=== PATIENT | female | born 1990 | race Caucasian/White ===

== ENCOUNTER 2018-01-02 01:28 | Day surgery (SDC) | payer SELFPAY ==
[2018-01-02 01:59] VITALS: BP 130/80; TEMP 98.6; BMI 28.7
--- NOTE | 2018-01-02 07:53 | PRG ---
DATE OF SERVICE: 01/02/2018 PRESENTING COMPLAINT: Contractions at 37 weeks gestation. HISTORY OF PRESENT ILLNESS: Ms. Sher is a 27-year-old 1 at 37 weeks. OB record is not ranjit ilable. She reports contractions for the past several hours, no bleeding, no leakage of fluid and an active fetus. OB AND [employer] HISTORY: Primigravida. Unknown labs. PAST MEDICAL HISTORY: Denies. PAST SURGICAL HISTORY: Denies. ALLERGIES: Denies. MEDICATIONS: vitamins. SOCIAL HISTORY: Denies tobacco, alcohol, or IV drug abuse. FAMILY HISTORY/REVIEW OF SYSTEMS: Noncontributory. PHYSICAL EXAMINATION: GENERAL: A female in no acute distress. VITAL SIGNS: Temperature 98.6, respirations 18, blood pressure 118/72, pulse 85. HEENT: Within normal limits. LUNGS: Clear to auscultation bilaterally. HEART: Regular rhythm. ABDOMEN: Soft with indentable contractions every 3-5 minutes. FHTs 140s. Fundal height of 36. PELVIC: Vulva without lesions. Vagina without discharge. Cervix closed, long, and high. EXTREMITIES: Without clubbing, cyanosis or edema. heart rate tracing greater than 30 minutes of monitoring was carried out with a category 1 feta l heart rate tracing. The patient had uterine irritability approximately every 3-5 minutes; however, this did not seem to be active labor as the patient was very comfortable through it. Cervix was unc hanged and was noted to be firm, closed, long, and high. IMPRESSION: Prodromal labor at 37 weeks gestation. PLAN: Reassurance, ER precautions. The patient to keep scheduled followup with Ryanne Galaviz.
== END 2018-01-02 02:47 | disposition home or self-care (01) ==
LOC: L&D/OP 01:28
PROVIDERS: ATTEND Advanced Practice Midwife
DX: O47.1 False labor at or after 37 completed weeks of gestation (principal); Z3A.37 37 weeks gestation of pregnancy; Z79.899 Other long term (current) drug therapy
CPT/HCPCS: 99282

== ENCOUNTER 2018-01-09 23:54 | Inpatient (IN) | payer BC, SELFPAY ==
[2018-01-10 00:26] VITALS: BMI 29.3
[2018-01-10] MEDS ORDERED: Penicillin G Potassium 5 MILL.UNITS VIAL ONE (00:53)
[2018-01-10] MEDS ORDERED: CEFAZOLIN/Water 2 GM/20 ML SYRINGE ONE (01:18)
[2018-01-10 01:19] LABS: Hemoglobin 11.9 g/dL (12.0-16.0); Mean Corpuscular HGB CONC 33.4 g/dL (32.0-36.0); Mean Corpuscular Hemoglobin 26.8 pg (27.0-31.0); Mean Corpuscular Volume 80.1 fl (81.0-99.0); Mean Platelet Volume 8.5 fL (7.4-10.4); Platelet Count 223 thou/uL (130-400); RBC Distribution Width 13.8 % (11.5-14.5); Red Blood Cell (RBC) Count 4.45 mill/uL (4.20-5.40); White Blood Cell (WBC) Count 19.4 thou/uL (4.8-10.8)
[2018-01-10] MEDS ORDERED: Ondansetron HCl/PF 4 MG/2 ML Vial IVP PRN ×2 (01:25→09:21)
[2018-01-10] MEDS ORDERED: Promethazine HCl 25 MG/ML VIAL IM PRN (01:25)
[2018-01-10] MEDS ORDERED: Lactated Ringer's 1,000 ML IV SCH (01:25)
[2018-01-10] MEDS ORDERED: Acetaminophen 500 MG TAB PO PRN (01:25)
[2018-01-10] MEDS ORDERED: Lidocaine 1% (PF) 30 ML VIAL SC PRN (01:30)
[2018-01-10] MEDS ORDERED: LR / Pitocin 40 units/1000 ml 40 UNITS/1,000 ML BAG IV SCH (01:30)
[2018-01-10] MEDS ORDERED: Ibuprofen 800 MG TAB PO PRN (01:30)
[2018-01-10] MEDS ORDERED: LR 500 ML/Oxytocin 10 units 500 ML IV SCH ×2 (01:30)
[2018-01-10 01:49] LABS: Syphilis Antibody Nonreactive (Nonreactive); Syphilis Antibody Index 0.06 S/CO (<1.00 Non-Reactive)
[2018-01-10 01:50] LABS: Hep B Surf Ag Non-Reactive S/CO (NonReactive)
--- NOTE | 2018-01-10 06:46 | PDOC.LDHP ---
Labor and Delivery H&P Chief complaint: contractions, loss of fluid (SROM at 2200 at home.) HPI: She had a big gush of fluid on 01/09/18, so much that she had to use a towel to clean it up. She started having mild contractions and called the her CNM who advised her to go to L&D. Current gestational age (weeks): 38 Due date: 01/23/18 Dating criteria: last menstrual period Grav: 1 Para: 0 OB History Details: none, primigravida Abnormal US findings: No Past Medical History: none Current medications: pre-jaxson vitamins Previous surgical history: none Allergies/Adverse Reactions: Allergies Allergy/AdvReac Type Severity Reaction Status Date / Time amoxicillin Allergy Nausea Verified 01/10/18 00:22 Social history: none (during ) - Physical Exam Vital signs reviewed and normal: yes General: breathing through contractions Heart: RRR Lungs: nonlabored breathing Abdomen: gravid Extremeties: no edema FHT: category 1 [place] contractions every: q2-3 mins - Vaginal Exam cm dilated: 5 Effacement: 90% Station: -1 - OB Labs Blood type: O RH: positive Antibody Screen: negative HIV: negative RPR: negative HEPSAg: negative 1 hour GCT: negative GBS: positive Urine drug screen: not done Rubella: immune - Assessment L&D Assessment: term patient in labor GBS positive - Plan Plan: admit to L&D, GBS antibiotic prophylaxis (with ancef 2gm load and 1g q8)
--- NOTE | 2018-01-10 06:47 | PDOC.OPDEL ---
OB Operative/Delivery Note Delivery Dr/Surgeon: Guillaume Pre-Delivery Diagnosis: active labor, ruptured membrane Procedure/Post Delivery Dx: spontaneous vaginal delivery Weeks gestation: 38 Anesthesia: none - Findings A Sex: male Weight: 8 lb 13 oz - 1 min: 8 - 5 min: 9 - Additional Findings/Plan Placenta delivered: spontaneous Repaired Obstetrical Laceration: 1st degree (repaired) Estimated blood loss: 200 Compilations/Other Findings: compound delivery of hand 1cm labial hematoma lateral to the clitoral menendez right side, non expanding Post delivery plan: routine recovery
[2018-01-10] MEDS ORDERED: Varicella virus, LIVE 0.5 ML VIAL SC ONE (09:21)
[2018-01-10] MEDS ORDERED: LR / Pitocin 40 units/1000 ml 1,000 ML IV SCH (09:21)
[2018-01-10] MEDS ORDERED: Prenatal Vitamin 1 TAB PO SCH ×2 (09:21→10:15)
[2018-01-10] MEDS ORDERED: Docusate Calcium (SURFAK) 240 MG CAP PO SCH ×2 (09:21→10:15)
[2018-01-10] MEDS ORDERED: Ferrous Sulfate 325 MG TAB PO SCH ×2 (09:21→10:15)
[2018-01-10] MEDS ORDERED: Adacel (T-DAP) 0.5 ML VIAL IM ONE (09:21)
[2018-01-10] MEDS ORDERED: Lanolin Ointment 7 GM TUBE TOP PRN (09:21)
[2018-01-10] MEDS ORDERED: HYDROcodone/Acetaminophen 5/325 mg Tablet PO PRN ×2 (09:21)
[2018-01-10] MEDS ORDERED: Bisacodyl 10 MG SUPP PR PRN (09:21)
[2018-01-10] MEDS ORDERED: Methylergonovine 0.2 MG/ML VIAL IM PRN (09:21)
[2018-01-10] MEDS ORDERED: Benzocaine/Menthol 20-0.5% 60 ML CAN TOP PRN (09:21)
[2018-01-10] MEDS ORDERED: Measles/Mumps/Rubella 10 MCG/0.5 ML VIAL SC ONE (09:21)
[2018-01-10] MEDS ORDERED: Milk Of Magnesia 30 ML UDCUP PO PRN (09:21)
[2018-01-10] MEDS: Ibuprofen 800 MG TAB PO SCH ×2 (13:33→21:24)
[2018-01-10] MEDS: Ferrous Sulfate 325 MG TAB PO SCH (15:37)
[2018-01-10] MEDS: Docusate Calcium (SURFAK) 240 MG CAP PO SCH (21:24)
[2018-01-11 05:24] LABS: Hemoglobin 10.3 g/dL (12.0-16.0); Mean Corpuscular HGB CONC 33.5 g/dL (32.0-36.0); Mean Corpuscular Hemoglobin 27.3 pg (27.0-31.0); Mean Corpuscular Volume 81.6 fl (81.0-99.0); Platelet Count 206 thou/uL (130-400); Red Blood Cell (RBC) Count 3.76 mill/uL (4.20-5.40); White Blood Cell (WBC) Count 15.9 thou/uL (4.8-10.8)
[2018-01-11] MEDS: Ibuprofen 800 MG TAB PO SCH ×3 (05:50→21:22)
[2018-01-11] MEDS: Prenatal Vitamin 1 TAB PO SCH (10:21)
[2018-01-11] MEDS: Docusate Calcium (SURFAK) 240 MG CAP PO SCH ×2 (10:21→21:22)
[2018-01-11] MEDS: Ferrous Sulfate 325 MG TAB PO SCH ×2 (10:22→17:31)
--- NOTE | 2018-01-11 10:55 | PDOC.PP ---
Post Progress Note Post Day #: 1 Subjective: doing well. baby is like a champ. She is a little sores, but way better than what she expected. Up to ambulate, using the restroom, passing gas. Having minimal bleeding PO intake tolerated: yes Flatus: yes Ambulation: yes Vital Signs (12 hours) Temp Pulse Resp BP Pulse Ox 01/11/18 07:29 97.9 F 69 17 128/64 99 01/11/18 05:52 98.1 F 01/11/18 03:38 98.0 F 64 18 124/74 98 01/10/18 23:53 98.4 F 84 18 120/61 98 Weight Weight 193 lb - Physical Examination General: NAD Cardiovascular: no m/r/g Respiratory: non-labored breathing Abdominal: + bowel sounds, lochia (scant) Fundus firm & at: -2 Extremities: negative homans (B) Psychiatric: A&Ox3, normal affect Result Diagrams: 01/11/18 05:09 Additional Labs: Post Labs Blood Type O POSITIVE 01/10/18 01:00 Hep Bs Antigen Non-Reactive S/CO (NonReactive) 01/10/18 01:00 - Assessment/Plan A; G1 now P1 SP at 38 weeks. NML ppd #1 exam. P: discharge home tonight is is discharging, if not discharge home tomorrow.
[2018-01-12] MEDS: Ibuprofen 800 MG TAB PO SCH ×2 (05:47→14:00)
[2018-01-12] MEDS: Ferrous Sulfate 325 MG TAB PO SCH (08:18)
[2018-01-12] MEDS: Prenatal Vitamin 1 TAB PO SCH (08:19)
[2018-01-12] MEDS: Docusate Calcium (SURFAK) 240 MG CAP PO SCH (08:19)
[2018-01-12 08:35] VITALS: BP 122/74; TEMP 98.6
== END 2018-01-12 14:29 | disposition home or self-care (01) | DRG 775 ==
LOC: L&D/OP 23:54 → L&D-LIB 01-10 01:33 → 3SE 01-10 08:34
PROVIDERS: ADMIT Obstetrics & Gynecology; ATTEND Obstetrics & Gynecology
PROC: 10E0XZZ Delivery of Products of Conception, External Approach (ICD-10-PCS; principal; 2018-01-10)
PROC: 0HQ9XZZ Repair Perineum Skin, External Approach (ICD-10-PCS; 2018-01-10)
DX: O70.0 First degree perineal laceration during delivery (principal); Z37.0 Single live birth; Z3A.38 38 weeks gestation of pregnancy
CPT/HCPCS: 36415; 85027; 86780; 87340; 90707; 90716; 99285; A4216; J0690; J2001; J2540

== ENCOUNTER 2019-04-22 07:00 | Inpatient (IN) | payer BC ==
[2019-04-22] MEDS ORDERED: Bisacodyl 10 MG SUPP PR PRN (07:44)
[2019-04-22] MEDS ORDERED: Benzocaine-Menthol 82.5 ML CAN TOP PRN (07:44)
[2019-04-22] MEDS ORDERED: Milk Of Magnesia 30 ML UDCUP PO PRN (07:44)
[2019-04-22] MEDS ORDERED: hydrALAZINE 20 MG/ML VIAL SLOW IVP PRN ×2 (07:44)
[2019-04-22] MEDS ORDERED: Oxytocin 10 UNITS/ML VIAL IM PRN (07:48)
--- NOTE | 2019-04-22 08:11 | PDOC.LDHP ---
Labor and Delivery H&P Chief complaint: other ( at home) HPI: patient arrived to the ER after delivering her infant at home this morning at 0630. She arrived by personal vehicle. she had not delivered the placenta. The infant was crying and trying to nurse in the car. Current gestational age (weeks): 39 Due date: 04/24/19 Dating criteria: last menstrual period Grav: 2 Para: 1 Current complications: none Abnormal US findings: Yes (Bilateral renal pylectasis ) Current medications: pre- vitamins Previous surgical history: none Allergies/Adverse Reactions: Allergies Allergy/AdvReac Type Severity Reaction Status Date / Time amoxicillin Allergy Nausea Verified 01/10/18 00:22 Social history: none - Physical Exam Vital signs reviewed and normal: yes Heart: RRR Lungs: nonlabored breathing - OB Labs Blood type: O RH: positive Antibody Screen: negative HIV: negative RPR: negative HEPSAg: negative 1 hour GCT: negative GBS: negative Urine drug screen: negative Rubella: immune - Assessment Term patient - Plan Plan: admit to L&D -: Routine care. kane consult for pylectasis.
[2019-04-22] MEDS: Ibuprofen 800 MG TAB PO SCH ×3 (08:15→21:48)
--- NOTE | 2019-04-22 08:16 | PDOC.OPDEL ---
OB Operative/Delivery Note Delivery Dr/Surgeon: Guillaume Pre-Delivery Diagnosis: other ( at home) Weeks gestation: 39 Anesthesia: none - Findings A Sex: male Weight: 8 lb 3 oz - Additional Findings/Plan Placenta delivered: spontaneous Repaired Obstetrical Laceration: none Estimated blood loss: 250mL Post delivery plan: routine recovery
[2019-04-22 10:43] LABS: Hemoglobin 13.7 g/dL (12.0-16.0); Mean Corpuscular HGB CONC 33.3 g/dL (32.0-36.0); Mean Corpuscular Hemoglobin 29.3 pg (27.0-31.0); Mean Corpuscular Volume 88.1 fL (78.0-98.0); Mean Platelet Volume 8.5 fL (7.4-10.4); Platelet Count 206 thou/uL (130-400); RBC Distribution Width 12.3 % (11.5-14.5); Red Blood Cell (RBC) Count 4.68 mill/uL (4.20-5.40); White Blood Cell (WBC) Count 18.4 thou/uL (4.8-10.8)
[2019-04-22 11:12] LABS: Syphilis Antibody Nonreactive (Nonreactive); Syphilis Antibody Index 0.06 S/CO (<1.00 Non-Reactive)
[2019-04-22 11:20] LABS: HBSAg Index 0.27 S/CO (0-0.99); Hep B Surf Ag Non-Reactive S/CO (NonReactive)
[2019-04-22] MEDS: Ferrous Sulfate 325 MG TAB PO SCH ×2 (11:53→14:35)
[2019-04-22] MEDS: Docusate Calcium (SURFAK) 240 MG CAP PO SCH ×2 (11:54→21:48)
[2019-04-22 19:03] VITALS: BMI 28.7
[2019-04-23] MEDS: Ibuprofen 800 MG TAB PO SCH ×2 (06:12→13:39)
[2019-04-23] MEDS ORDERED: Adacel (T-DAP) 0.5 ML SYRINGE IM ONE (07:44)
[2019-04-23 07:48] VITALS: BP 126/82; TEMP 98
[2019-04-23] MEDS: Ferrous Sulfate 325 MG TAB PO SCH ×2 (07:53→14:07)
[2019-04-23] MEDS: Docusate Calcium (SURFAK) 240 MG CAP PO SCH (09:28)
--- NOTE | 2019-04-23 15:12 | PDOC.PP ---
Post Progress Note Post Day #: 1 Subjective: Patient is doing well. Would like to go home today if possible PO intake tolerated: yes Flatus: yes Ambulation: yes Vital Signs (12 hours) Temp Pulse Resp BP Pulse Ox 04/23/19 07:47 98.0 F 78 20 126/82 98 04/23/19 03:55 98.5 F 74 16 115/74 98 Weight Weight 189 lb - Physical Examination General: NAD Cardiovascular: no m/r/g Respiratory: non-labored breathing Abdominal: lochia (minimal) Extremities: negative homans (B) Skin: no rash Neurological: no gross focal deficits Psychiatric: A&Ox3, normal affect Result Diagrams: 04/22/19 10:13 Additional Labs: Post Labs Blood Type O POSITIVE 04/22/19 10:13 Hep Bs Antigen Non-Reactive S/CO (NonReactive) 04/22/19 10:13 (1) (spontaneous vaginal delivery) Code(s): O80 - ENCOUNTER FOR FULL-TERM UNCOMPLICATED DELIVERY Status: Acute (2) 39 weeks gestation of Code(s): Z3A.39 - 39 WEEKS GESTATION OF Status: Acute - Assessment/Plan A: sp .with NML ppd 1 exam P;Routine care. Discharge home if infant is discharged today.
== END 2019-04-23 16:00 | disposition home or self-care (01) | DRG 776 ==
LOC: ERS 07:00 → L&D 07:01 → 3SW 10:50
PROVIDERS: ADMIT Obstetrics & Gynecology; ATTEND Obstetrics & Gynecology
PROC: 10E0XZZ Delivery of Products of Conception, External Approach (ICD-10-PCS; principal; 2019-04-22)
DX: Z39.0 Encounter for care and examination of mother immediately after delivery (principal)
CPT/HCPCS: 85027; 86780; 86850; 86900; 86901; 87340; 99284; 99285

== ENCOUNTER 2020-08-26 00:59 | Inpatient (IN) | payer BC ==
[2020-08-26] MEDS ORDERED: HYDROcodone/Acetaminophen 5/325 mg Tablet PO PRN ×2 (01:53)
[2020-08-26] MEDS ORDERED: hydrALAZINE 20 MG/ML VIAL SLOW IVP PRN (01:53)
[2020-08-26] MEDS ORDERED: Promethazine HCl 25 MG/ML VIAL IM PRN (01:53)
[2020-08-26] MEDS ORDERED: Methylergonovine 0.2 MG/ML VIAL IM PRN (01:53)
[2020-08-26] MEDS ORDERED: Diphenoxylate HCl/Atropine Tablet PO PRN ×2 (01:53)
[2020-08-26] MEDS ORDERED: Butorphanol Tartrate 1 MG/ML VIAL SLOW IVP PRN (01:53)
[2020-08-26] MEDS ORDERED: Ondansetron PF 4 MG/2 ML Vial IVP PRN (01:53)
[2020-08-26] MEDS ORDERED: Acetaminophen 500 MG TAB PO PRN (01:53)
[2020-08-26] MEDS ORDERED: Misoprostol 200 MCG TAB PR PRN (01:53)
[2020-08-26] MEDS ORDERED: NS / Oxytocin 40 units/1000ml 1,000 ML IV PRN (01:53)
[2020-08-26] MEDS ORDERED: Lidocaine 1% (PF) 30 ML VIAL SC PRN (01:53)
[2020-08-26] MEDS ORDERED: Carboprost 250 MCG/ML AMP IM PRN (01:53)
[2020-08-26 02:41] VITALS: BMI 30.7
[2020-08-26 02:43] LABS: Hemoglobin 12.8 g/dL (12.0-16.0); Mean Corpuscular HGB CONC 32.5 g/dL (32.0-36.0); Mean Corpuscular Hemoglobin 28.3 pg (27.0-31.0); Mean Platelet Volume 9.1 fL (7.4-10.4); Platelet Count 191 thou/uL (130-400); RBC Distribution Width 12.5 % (11.5-14.5); Red Blood Cell (RBC) Count 4.51 mill/uL (4.20-5.40)
--- NOTE | 2020-08-26 02:52 | PDOC.LDHP ---
Labor and Delivery H&P Chief complaint: contractions HPI: Patient started having contractions around 200 with bloody show. +FM. Current gestational age (weeks): 38 (6 days) Due date: 09/03/20 Dating criteria: first trimester ultrasound Grav: 3 Para: 2 OB History Details: 2018 8.12 2019 39.5 2020 current Current complications: none Current medications: pre- vitamins Previous surgical history: none Allergies/Adverse Reactions: Allergies Allergy/AdvReac Type Severity Reaction Status Date / Time No Known Allergies Allergy Verified 08/26/20 02:34 Social history: none - Physical Exam Vital signs reviewed and normal: yes General: NAD Lungs: nonlabored breathing Abdomen: gravid FHT: category 1 - Vaginal Exam cm dilated: 7 Effacement: 75% Station: -3 - Assessment L&D Assessment: term patient in labor cephalic presentation EFW 8 lb 8oz - Plan Plan: admit to L&D, informed consent obtained -: Low intervention protocol Anticipate
[2020-08-26] MEDS: Lactated Ringer's 1,000 ML IV SCH ×3 (02:54→18:40)
[2020-08-26 03:21] LABS: HBSAg Index 0.19 S/CO (0-0.99); Hep B Surf Ag Non-Reactive S/CO (NonReactive)
[2020-08-26 06:09] LABS: Syphilis Antibody Nonreactive (Nonreactive); Syphilis Antibody Index 0.04 S/CO (<1.00 Non-Reactive)
[2020-08-26 08:58] LABS: Actual Bicarbonate (HCO3a) 23.2 mEq/L (22-28); Actual Bicarbonate (HCO3v) 23 mEq/L (22-28); Analyzer IN Cardio OR; Base Excess -1.2 mEq/L (-2.0 to +3.0); pH (Cord, venous) 7.42 (7.32-7.43)
[2020-08-26] MEDS: Ibuprofen 800 MG TAB PO PRN ×2 (09:16→20:14)
[2020-08-26 09:19] LABS: SARS-CoV-2 MS2 Positive; SARS-CoV-2 N Gene Negative; SARS-CoV-2 S Gene Negative; SARS-CoV-2 by NAA Not Detected (NotDetected); SARS-CoV-2 orf1ab Negative
[2020-08-26] MEDS ORDERED: NS / Oxytocin 40 units/1000ml 1,000 ML IV SCH ×2 (16:52)
[2020-08-27] MEDS ORDERED: Bisacodyl 10 MG SUPP PR PRN (05:54)
[2020-08-27] MEDS ORDERED: NS / Oxytocin 40 units/1000ml 1,000 ML IV SCH (05:54)
[2020-08-27] MEDS ORDERED: Misoprostol 200 MCG TAB VAG PRN (05:54)
[2020-08-27] MEDS ORDERED: Milk Of Magnesia 30 ML UDCUP PO PRN (05:54)
[2020-08-27] MEDS ORDERED: Lanolin Ointment 7 GM TUBE TOP PRN (05:54)
[2020-08-27] MEDS ORDERED: hydrALAZINE 20 MG/ML VIAL SLOW IVP PRN (05:54)
[2020-08-27] MEDS ORDERED: Benzocaine-Menthol 82.5 ML CAN TOP PRN (05:54)
[2020-08-27] MEDS ORDERED: Methylergonovine 0.2 MG/ML VIAL IM PRN (05:54)
[2020-08-27] MEDS: Ibuprofen 800 MG TAB PO SCH ×2 (06:55→14:06)
--- NOTE | 2020-08-27 07:16 | PDOC.OPDEL ---
OB Operative/Delivery Note Delivery Dr/Surgeon: Guillaume. (Late entry) Pre-Delivery Diagnosis: active labor Procedure/Post Delivery Dx: spontaneous vaginal delivery Weeks gestation: 38 Anesthesia: none - Findings A Sex: female Weight: 9 lb 10 oz - 1 min: 5 - 5 min: 7 - Additional Findings/Plan Placenta delivered: spontaneous Repaired Obstetrical Laceration: none Estimated blood loss: 200mL Compilations/Other Findings: bradycardia prior to delivery. tight nuchal. Patrick team called Post delivery plan: routine recovery
[2020-08-27] MEDS ORDERED: Ferrous Sulfate 325 MG TAB PO SCH (08:00)
[2020-08-27] MEDS ORDERED: Prenatal Vitamin 1 TAB PO SCH (09:00)
[2020-08-27] MEDS ORDERED: Adacel (T-DAP) 0.5 ML SYRINGE IM ONE (09:00)
[2020-08-27] MEDS ORDERED: Docusate Calcium (SURFAK) 240 MG CAP PO SCH (09:00)
[2020-08-27 12:31] VITALS: BP 117/65; TEMP 98.4
== END 2020-08-27 15:30 | disposition home or self-care (01) | DRG 807 ==
LOC: L&D/OP 00:59 → L&D-LIB 01:40 → 3SE 14:00
PROVIDERS: ADMIT Obstetrics & Gynecology; ATTEND Obstetrics & Gynecology
PROC: 10E0XZZ Delivery of Products of Conception, External Approach (ICD-10-PCS; principal; 2020-08-26)
PROC: 10907ZC Drainage of Amniotic Fluid, Therapeutic from Products of Conception, Via Natural or Artificial Opening (ICD-10-PCS; 2020-08-26)
DX: O76 Abnormality in fetal heart rate and rhythm complicating labor and delivery (principal); Z37.0 Single live birth; Z20.828 Contact with and (suspected) exposure to other viral communicable diseases; O69.1XX0 Labor and delivery complicated by cord around neck, with compression, not applicable or unspecified; Z3A.38 38 weeks gestation of pregnancy; O71.82 Other specified trauma to perineum and vulva
CPT/HCPCS: 36415; 82805; 85027; 86780; 86850; 86900; 86901; 87340; 87635; 99285; U0003